=== PATIENT | male | born 1970 ===

== ENCOUNTER → 2019-05-06 | Day surgery (SDC) | payer BC ==
[~2019-05-06] MED LIST: FENTANYL CITRATE/PF 100MCG/2 ML INJ ONE; MIDAZOLAM HCL 2 MG/2 ML VIAL ONE; NIFEDIPINE ER30 MG; PROPOFOL IV EMULSION 10 MG/ML 20 ML VIAL ONE; bp med PO
[2019-05-06 13:15] VITALS: BP 136/93
== END | disposition home or self-care (01) ==
LOC: OR 10:26
PROVIDERS: ATTEND Internal Medicine
DX: K21.9 Gastro-esophageal reflux disease without esophagitis (principal); K29.70 Gastritis, unspecified, without bleeding; K20.9 Esophagitis, unspecified; R63.4 Abnormal weight loss; I10 Essential (primary) hypertension; J45.909 Unspecified asthma, uncomplicated; Z88.8 Allergy status to other drugs, medicaments and biological substances; Z68.34 Body mass index [BMI] 34.0-34.9, adult
CPT/HCPCS: 43239; 93005; J2250; J2704; J3010